=== PATIENT | male | born 1995 ===

== ENCOUNTER 2018-07-11 14:57 | Outpatient (CLI) | payer OTHER | END 2018-07-13 11:40 | disposition home or self-care (01) | LOC: RAD 14:57 | DX: M54.2 Cervicalgia (principal); M54.6 Pain in thoracic spine; M54.5 Low back pain ==

== ENCOUNTER 2019-10-27 19:34 | Emergency (ER) | payer OTHER ==
[~2019-10-27] VITALS: Ht 170.2 cm; Wt 70.8 kg
[2019-10-27] MEDS ORDERED: KETO10TA2 PO (23:26)
== END 2019-10-27 23:30 | disposition home or self-care (01) ==
LOC: ER 19:34
DX: S86.812A Strain of other muscle(s) and tendon(s) at lower leg level, left leg, initial encounter (principal); S66.811A Strain of other specified muscles, fascia and tendons at wrist and hand level, right hand, initial encounter; X50.9XXA Other and unspecified overexertion or strenuous movements or postures, initial encounter; Y93.66 Activity, soccer; Y92.322 Soccer field as the place of occurrence of the external cause; Y99.8 Other external cause status

== ENCOUNTER 2022-07-19 09:10 | Outpatient (CLI) | payer OTHER ==
[~2022-07-19 09:10] MED LIST: KETO10TA2 PO
== END 2022-07-19 09:23 | disposition home or self-care (01) ==
LOC: RAD 09:10
DX: M25.562 Pain in left knee (principal)